=== PATIENT | female | born 1945 | race Caucasian/White ===

== ENCOUNTER → 2018-05-04 | Outpatient (CLI) | payer MEDICARE, OTHER ==
[~2018-05-04] MED LIST: ADVAIR 250-501 EACH INH; ADVAIR HFA 230M12 GM INH; ADVAIR INH; AVAPRO 150 MG150 M1 PO; BENTYL 10 MG CA10 M1 PO; BENTYL10 MG PO; CARDIZEM CD120 MG PO; CLONAZEPAM 1 MG1 M1 PO; HYDRALAZINE 2525 MG PO; HYDROXYZINE HCL25 M1; HYDROXYZINE HCL25 M2 PO; IRBESARTAN150 MG PO; LEVOTHYROXIN0.025 MG PO; LEVOTHYROXINE0.05 MG PO; LIPITOR 20 MG T20 M1 PO; NEXIUM40 MG PO; OLANZAPINE15 MG; OLANZAPINE5 MG PO; PROAIR HFA8.5 GM INH; SORINE 80 MG TA80 M1 PO; SOTALOL 120 MG120 M1 PO; SOTALOL AF120 MG PO; TYLENOL325 MG PO; VENTOLIN HFA 1818 GM INH; ZOLOFT25 MG PO
== END ==
LOC: M.ULTRA 13:41
DX: I65.23 Occlusion and stenosis of bilateral carotid arteries (principal)

== ENCOUNTER 2020-03-28 10:59 | Inpatient (IN) | payer MEDICARE, OTHER ==
[~2020-03-28] VITALS: Ht 160 cm; Wt 89.4 kg
[~2020-03-28 10:59] MED LIST changes: -LEVOTHYROXINE0.05 MG PO; +SYNTHROID50 MCG PO
[2020-03-28 11:04] VITALS: BP 173/84
[2020-03-28 11:55] LABS: BE 0.4 mmol/L (-2 to +3); PCO2 36.1 mmHg (35.0-45.0); PO2 66.7 mmHg (75.0-100.0)
[2020-03-28 12:08] LABS: ABSOLUTE MONOCYTES 0.9 thou/uL (0.0-1.2); ABSOLUTE NEUTROPHILS 4.5 thou/uL (1.6-8.1); BASOPHILS 0.2 %; HEMATOCRIT 38.5 % (37.0-47.0); HEMOGLOBIN 13.2 gm/dL (12.0-15.0); LYMPHOCYTES 15.2 %; MCH 32.5 pg (26.0-34.0); MCHC 34.2 g/dL (28.0-37.0); MONOCYTES 13.8 %; MPV 8.8 fl. (7.2-11.1); NUCLEATED RBCS 0 /100WBC; PLATELET COUNT* 206 thou/uL (150-400); POLYS 70.8 %; RBC 4.05 mil/uL (4.20-5.00); RDW-CV 12.5 % (10.5-14.5); WBC 6.4 thou/uL (4.0-11.0)
[2020-03-28 12:19] LABS: CALCIUM 8.7 mg/dL (8.5-10.1); CREATININE 0.8 mg/dL (0.6-1.3); POTASSIUM 3.7 mmol/L (3.5-5.1)
[2020-03-28 12:21] LABS: APTT 25.4 Seconds (25.0-31.3); PROTIME 9.9 Seconds (9.20-11.50)
[2020-03-28 12:29] LABS: TOTAL BILIRUBIN 0.3 mg/dL (<0.1-1.0); TOTAL PROTEIN 7.1 g/dL (6.4-8.2)
[2020-03-28 12:42] LABS: INR < 0.9
--- NOTE | 2020-03-28 15:33 | NUR ---
AZITHROMYCIN VIA IV INITIATED AT 1502HRS. PT MONITORED WITH NURSE IN ROOM. AT APRX 1515, PT C/O INCREASED SOA, ANTIBIOTICS STOPPED. ADMINISTERED 25MG BENADRYL AT 1522. NO SWELLING OF LIPS, THROAT OR TONGUE. PT STATES SHE WAS FEELING BETTER WHEN THE ANTIBIOTIC WAS STOPPED. PROVIDER NOTIFIED. WILL CONTINUE TO MONITOR
[2020-03-28 17:15] VITALS: BP 123/58
[2020-03-28 17:32] VITALS: BP 156/91
--- NOTE | 2020-03-28 18:57 | NUR ---
PT ADMITTED TO ROOM 108 VIA CART FROM ED AT APPROX 1725. REPORT RECEIVED FROM ROBB DOZIER. PT ORIENTED TO ROOM AND CALL LIGHT. ADMISSION ASSESSMENT AND HISTORY COMPLETED CHARTED. SEPSIS SCREENING NEGATIVE. PT A&0X4, DENIES ANY PAIN OR SHORTNESS OF BREATH AT REST. PT COMPLAINS OF SHORTNESS OF BREATH WITH EXERTION. PT ON 2L NC SAT MID 90'S. PT UP SBA TO BATHROOM. IVF. PT TRACING SR ON THE ROLLED SEAT TRIMMER. MEDS PER JUN. PT REPOSITIONS SELF. HOURLY ROUNDING OBSERVED. BED IN LOW POSITION. CALL LIGHT WITHIN REACH. WILL CONTINUE PLAN OF CARE.
[2020-03-28 20:00] VITALS: BP 126/68
[2020-03-29 00:26] VITALS: BP 101/47
[2020-03-29 04:00] VITALS: BP 127/61
--- NOTE | 2020-03-29 04:53 | NUR ---
PATIENT SLEPT WELL DURING THIS SHIFT. PT DENIES PAIN/NAUSEA. PT WITH ONE BAG OF FLUIDS INFUSING PER DR ORDER THEN SALINE LOCKED. PT IN SR ON PROFESSOR CRIMINAL JUSTICE. PT ON O2 @ 2 LITERS PER NASAL CANNULA. PT UP WITH STANDBY. PT DENIES NEEDS AT THIS TIME. FREQUENTLY USED ITEMS AND CALL LIGHT WITHIN REACH. SIDERAILS UPX2. WILL CONTINUE TO MONITOR.
[2020-03-29 06:07] LABS: HEMOGLOBIN 12.4 gm/dL (12.0-15.0); MCH 31.8 pg (26.0-34.0); MCHC 33.5 g/dL (28.0-37.0); MCV 94.9 fL (80.0-100.0); RBC 3.9 mil/uL (4.20-5.00); RDW-CV 12.4 % (10.5-14.5); WBC 5.1 thou/uL (4.0-11.0)
[2020-03-29 06:20] LABS: ALBUMIN 2.6 g/dL (3.4-5.0); CALCIUM 8.2 mg/dL (8.5-10.1); CREATININE 0.7 mg/dL (0.6-1.3); POTASSIUM 3.6 mmol/L (3.5-5.1); TOTAL BILIRUBIN 0.2 mg/dL (<0.1-1.0); TOTAL PROTEIN 6.6 g/dL (6.4-8.2)
--- NOTE | 2020-03-29 08:09 | NUR ---
CONTINUOUS O2 SAT MONITOR ALARMING, SAT 81% WITH PT ON RA. PT STATES SHE HAD REMOVED HOME CPAP BUT HAS BEEN WEARING O2 DURING DAY. PT TITRATED TO 3L O2 PER NC TO OBTAIN SAT >90%. TRANSFERRED TO CHAIR WITH MODERATE ASSIST X1. DESAT TO 75% DURING TRANSFER WITH REBOUND TO 90% OVER 2-3 MINUTES ON 3L. CALL LIGHT WITHIN REACH.
[2020-03-29 09:18] VITALS: BP 165/73
[2020-03-29] MEDS ORDERED: LOVASTAT10 PO (11:17)
[2020-03-29] MEDS ORDERED: VENLAFAXINE HC150 M1 PO (11:20)
[2020-03-29] MEDS ORDERED: SPIRONOLACTONE25 MG PO (11:21)
[2020-03-29] MEDS ORDERED: WIXELA 250-501 EACH INH (11:22)
[2020-03-29 12:00] VITALS: BP 136/58
--- NOTE | 2020-03-29 12:01 | EKG ---
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: MS : 1945 Requested By: Anibal Jordan Order Number: [id number] MD: Colin Myles Measurements Intervals [place] Rate: 151 P: 40 [place]: 99 QRS: -5 QRSD: 74 T: 178 QT: 258 QTc: 409 Interpretive Statements atrial fibrillation Repolarization abnormality, prob rate related Compared to ECG 10/24/2013 23:53:42 Early repolarization now present Sinus bradycardia no longer present Electronically Signed On 03-29-2020 12:01:12 ATHLETIC AGENT by Colin Myles [email or web address] <ELECTRONICALLY SIGNED> By: Colin Myles MD, FACC 03/29/20 1201 1649 1649 Colin Myles MD, FAC /EPI
[2020-03-29 16:00] VITALS: BP 140/72
[2020-03-29 20:00] VITALS: BP 156/76
[2020-03-30] VITALS (7 sets, daily range): BP systolic 138–153; BP diastolic 55–79
[2020-03-30 05:17] LABS: HEMOGLOBIN 12.1 gm/dL (12.0-15.0); MCH 32.4 pg (26.0-34.0); MCHC 34.5 g/dL (28.0-37.0); MCV 93.7 fL (80.0-100.0); MPV 8.2 fl. (7.2-11.1); RBC 3.73 mil/uL (4.20-5.00); RDW-CV 12.6 % (10.5-14.5); WBC 10.7 thou/uL (4.0-11.0)
[2020-03-30 05:32] LABS: ALBUMIN 2.4 g/dL (3.4-5.0); CALCIUM 8.6 mg/dL (8.5-10.1); CREATININE 0.7 mg/dL (0.6-1.3); MAGNESIUM 2.1 mg/dL (1.8-2.4); POTASSIUM 3.6 mmol/L (3.5-5.1); TOTAL BILIRUBIN 0.2 mg/dL (<0.1-1.0); TOTAL PROTEIN 6.1 g/dL (6.4-8.2)
--- NOTE | 2020-03-30 11:47 | EKG ---
[place] [address] ELECTROCARDIOGRAM REPORT Name: LAZIRISH Room: [address] ADM IN M.R.#: [id number] Admission: 03/28/20 Attend Phys: Wilmer Martin, Discharge: Date of : 41 Date of Service: 03/28/20 1136 Report #: [id number] THIS REPORT FOR: //name// [facility] ED Test Date: 2020-03-28 Test Time: 11:36:23 Pat Name: IRISH NESBITT Department: Room: [address] Gender: F Choir Director: NOLA : 1945 Requested By: Anibal Jordan Order Number: [id number] Reading MD: Colin Myles Measurements Intervals [place] Rate: 91 P: 40 [place]: 143 QRS: -14 QRSD: 84 T: 46 QT: 381 QTc: 469 Interpretive Statements Sinus rhythm Probable left atrial enlargement Minimal ST depression, lateral leads Compared to ECG 10/24/2013 23:53:42 ST (T wave) deviation now present Sinus bradycardia no longer present Electronically Signed On 03-30-2020 11:47:22 EXTRUSION DIE TEMPLATE MAKER by Colin Myles [email or web address] <ELECTRONICALLY SIGNED> By: Colin Myles MD, FACC 03/30/20 1147 1136 1136 Colin Myles MD, FACC /EPI
--- NOTE | 2020-03-30 17:22 | NUR ---
PT SITTING IN BED AT TIME OF ASSESSMENT, AO X4 2L OXYGEN. LUNGS CTA/DIMINISHED AND REPORTS A COUGH WITH YELLOW PRODUCTION AT TIMES. SHE RECEIVED 1 UNIT OF CONVALESCENT PLASMA WITHOUT PROBLEM. VSS, PT WAS INITIALLY ON 2L PER NC AND AN OXIMETRY WITHOUT SUPPLEMENTAL OXYGEN WAS ORDERED TO WHICH THE PT WAS SATING 92-93% ON RA. SHE DID NOTICE DYSPNEA WITH EXERTION AND AFTER APPROX 2 HRS WE PUT 2L BACK ON FOR HER COMFORT. SHE HAS RESTED IN THE CHAIR AND IN BED TODAY AND ASKED MANY APPROPRIATE QUESTIONS REGARDING HER CARE.
[2020-03-31] VITALS: BP 134/65
[2020-03-31 04:00] VITALS: BP 131/65
[2020-03-31 05:20] LABS: ABSOLUTE LYMPHOCYTES 0.9 thou/uL (0.8-5.3); ABSOLUTE NEUTROPHILS 10.3 thou/uL (1.6-8.1); BASOPHILS 0.1 %; HEMATOCRIT 35.7 % (37.0-47.0); LYMPHOCYTES 7.2 %; MCH 31.6 pg (26.0-34.0); MCHC 33.7 g/dL (28.0-37.0); MCV 93.9 fL (80.0-100.0); MONOCYTES 8.2 %; MPV 8.4 fl. (7.2-11.1); NUCLEATED RBCS 0 /100WBC; PLATELET COUNT* 247 thou/uL (150-400); POLYS 84.5 %; RDW-CV 12.5 % (10.5-14.5); WBC 12.2 thou/uL (4.0-11.0)
[2020-03-31 05:35] LABS: ALBUMIN 2.4 g/dL (3.4-5.0); CALCIUM 8.5 mg/dL (8.5-10.1); CREATININE 0.7 mg/dL (0.6-1.3); MAGNESIUM 2.2 mg/dL (1.8-2.4); POTASSIUM 3.6 mmol/L (3.5-5.1); TOTAL BILIRUBIN 0.3 mg/dL (<0.1-1.0)
[2020-03-31 08:00] VITALS: BP 169/84
[2020-03-31 12:00] VITALS: BP 129/54
--- NOTE | 2020-03-31 13:00 | NUR ---
SPOKE WITH PT.ON PHONE IN ROOM, SHE WAS IN COVID ISOLATION.SHE WAS ALERT ADN ORIENTED. SHE SAID SHE LIVES WITH HER . HE AND SON,JUD ARE SUPPORTIVE. PT.OCCASIONALLY USES A CANE TO WALK,WHEN SHE FEELS UNSTEADY. SHE IS NORMALLY INDEPENDENT. DOING WELL TODAY. ON 2L/NC O2 AND WALKED 100FT. POSSIBLE DISCHARGE TOMORROW.
[2020-03-31 16:00] VITALS: BP 158/81
[2020-03-31 20:44] VITALS: BP 152/74
[2020-04-01 00:08] VITALS: BP 134/72
--- NOTE | 2020-04-01 05:18 | NUR ---
PT IS ABLE TO COMMUNICATE HER NEEDS TO STAFF EFFECTIVELY. SHE HAS DENIED THE NEED FOR PAIN MEDICATION UP TO THIS TIME. POSSIBLE DISCHARGE TODAY. PT REMAINS AD WESTLEY AND ON ROOM AIR.
[2020-04-01 05:36] LABS: ABSOLUTE LYMPHOCYTES 0.8 thou/uL (0.8-5.3); ABSOLUTE NEUTROPHILS 9.5 thou/uL (1.6-8.1); BASOPHILS 0.3 %; HEMATOCRIT 36.8 % (37.0-47.0); HEMOGLOBIN 12.6 gm/dL (12.0-15.0); LYMPHOCYTES 7.2 %; MCH 31.8 pg (26.0-34.0); MCHC 34.2 g/dL (28.0-37.0); MONOCYTES 8.4 %; MPV 8.3 fl. (7.2-11.1); NUCLEATED RBCS 0 /100WBC; PLATELET COUNT* 253 thou/uL (150-400); POLYS 84.1 %; RBC 3.96 mil/uL (4.20-5.00); RDW-CV 12.4 % (10.5-14.5); WBC 11.4 thou/uL (4.0-11.0)
[2020-04-01 05:54] LABS: ALBUMIN 2.2 g/dL (3.4-5.0); CALCIUM 8.7 mg/dL (8.5-10.1); CREATININE 0.7 mg/dL (0.6-1.3); POTASSIUM 3.9 mmol/L (3.5-5.1); TOTAL BILIRUBIN 0.3 mg/dL (<0.1-1.0)
[2020-04-01 08:00] VITALS: BP 180/85
[2020-04-01] MEDS ORDERED: DOXYCYCLINE 10100 MG PO (11:52)
[2020-04-01] MEDS ORDERED: PROTONIX40 M2 PO (11:54)
[2020-04-01] MEDS ORDERED: DEXAMETHASONE1 MG PO (11:54)
[2020-04-01 12:48] VITALS: BP 141/65
[2020-04-01 17:59] VITALS: BP 152/73
--- NOTE | 2020-04-01 19:15 | NUR ---
PT.S DISCHARGE CANCELLED TODAY BY , DUE TO RESTING/EXERCISE SATS COMPLETED AND NEEDING 6L/NC OF 02 WITH ACITVITY.
[2020-04-01 20:29] VITALS: BP 151/83
[2020-04-02 00:02] VITALS: BP 130/54
--- NOTE | 2020-04-02 05:15 | NUR ---
PT IS ABLE TO COMMUNICATE HER NEEDS TO STAFF EFFECTIVELY. SHE HAS DENIED THE NEED FOR PAIN MEDICATION UP TO THIS TIME. SHE HAS BEEN WEARING 2L O2 WHILE SLEEPING OVERNIGHT AND UP TO THIS TIME. POSSIBLE DISCHARGE TODAY; SHE MAY REQUIRE O2 AT HOME.
[2020-04-02 08:15] VITALS: BP 172/87
[2020-04-02 08:41] LABS: ABSOLUTE LYMPHOCYTES 1.1 thou/uL (0.8-5.3); ABSOLUTE MONOCYTES 0.8 thou/uL (0.0-1.2); BASOPHILS 0.1 %; EOSINOPHILS 0.1 %; HEMATOCRIT 39.7 % (37.0-47.0); HEMOGLOBIN 12.9 gm/dL (12.0-15.0); LYMPHOCYTES 12.6 %; MCHC 32.5 g/dL (28.0-37.0); MONOCYTES 9.1 %; MPV 8.6 fl. (7.2-11.1); NUCLEATED RBCS 0 /100WBC; PLATELET COUNT* 247 thou/uL (150-400); POLYS 78.1 %; RBC 4.04 mil/uL (4.20-5.00); RDW-CV 12.7 % (10.5-14.5)
[2020-04-02 08:45] LABS: MCV 98.2 fL (80.0-100.0)
[2020-04-02 08:50] LABS: ALBUMIN 2.1 g/dL (3.4-5.0); CALCIUM 8.5 mg/dL (8.5-10.1); CREATININE 0.7 mg/dL (0.6-1.3); TOTAL BILIRUBIN 0.3 mg/dL (<0.1-1.0); TOTAL PROTEIN 5.7 g/dL (6.4-8.2)
[2020-04-02 12:07] VITALS: BP 162/73
[2020-04-02 16:00] VITALS: BP 157/71
[2020-04-02 16:50] VITALS: BP 150/96; BP 163/92
--- NOTE | 2020-04-02 18:22 | NUR ---
PT REMAINED ALERT AND ORIENTED. PLASMA GIVEN PER ORDERS. PT RESTING IN BED AND UP MOVING IN ROOM. HEART MONITORED. FALL RISK PRECAUTIONS IN PLACE. HOURLY ROUNDING COMPLETED. WILL CONTINUE TO MONITOR.
[2020-04-02 20:39] VITALS: BP 121/76
[2020-04-03 07:45] VITALS: BP 167/74
--- NOTE | 2020-04-03 08:43 | NUR ---
PT IS ABLE TO COMMUNICATE HER NEEDS TO STAFF EFFECTIVELY. SHE HAS DENIED THE NEED FOR PAIN MEDICATION UP TO 0700 THIS MORNING. POSSIBLE DISCHARGE SOON.
--- NOTE | 2020-04-03 11:30 | NUR ---
DISCUSSED IN [place]. PT.MAY BE READY FOR DISCHARGE TOMORROW IF REST/EXERCISE SATS IMPROVE. HOWEVER, IV REMDESIVIR WAS STARTED TODAY. WILL FOLLOW.
[2020-04-03 11:45] VITALS: BP 163/74
[2020-04-03 13:35] LABS: HEMATOCRIT 37.8 % (37.0-47.0); HEMOGLOBIN 12.8 gm/dL (12.0-15.0); MCH 32.3 pg (26.0-34.0); MCHC 33.9 g/dL (28.0-37.0); NUCLEATED RBCS 0 /100WBC; PLATELET COUNT* 288 thou/uL (150-400); RBC 3.98 mil/uL (4.20-5.00); RDW-CV 12.2 % (10.5-14.5); WBC 9.2 thou/uL (4.0-11.0)
[2020-04-03 13:38] LABS: CALCIUM 8.4 mg/dL (8.5-10.1); CREATININE 0.7 mg/dL (0.6-1.3); MAGNESIUM 2.4 mg/dL (1.8-2.4); POTASSIUM 4.1 mmol/L (3.5-5.1)
[2020-04-03 13:59] LABS: ABSOLUTE LYMPHOCYTES 0.9 thou/uL (0.8-5.3); ABSOLUTE MONOCYTES 0.4 thou/uL (0.0-1.2); ABSOLUTE NEUTROPHILS 7.9 thou/uL (1.6-8.1); METAMYELOCYTES 2 %; PLATELET ESTIMATE ADEQUATE
--- NOTE | 2020-04-03 14:43 | CON ---
[address] [address] CONSULTATION Name: IRISH NESBITT Room: [address] IN .R.#: [id number] Admission: 03/28/20 Attend Phys: Wilmer Martin MD Discharge: Date of : 41 Report #: [id number] THIS REPORT FOR: //name// cc: Jaimie Flores Catherine FNP ~ DATE OF SERVICE: 03/30/2020 CONSULT REQUESTED BY: Сергей Laura MD INDICATION FOR CONSULTATION: COVID-19. HISTORY OF PRESENT ILLNESS: A 74-year-old female with past medical history as mentioned below. This does include a history of obstructive lung disease. It is not fully apparent as to whether this is asthma or COPD. It appears more likely to me that it is asthma. The patient also does have a history of atrial fibrillation. She is on sotalol, but not on long-term anticoagulation. Atrial fibrillation is reported to be paroxysmal. The patient does have a body mass index elevated to 35 and it is possible that she has underlying previously undiagnosed sleep apnea. The patient is now admitted with increasing weakness, cough with some sputum production. She also is reported to have had fever and chills. The patient has had mild hypoxemia at times and has required oxygen up to 3 liters to maintain O2 saturation in the low 90s. The patient was saturating 92% on room air at the time of my evaluation. She reports increasing coughing over the last one week. REVIEW OF SYSTEMS: Negative for 12 points except as mentioned above. PAST MEDICAL HISTORY: Bronchial asthma or COPD, obesity, body mass index 35, paroxysmal atrial fibrillation. I do not have a recent echo. There is a stress test performed on 5 years ago, which shows a normal left ventricular ejection fraction. Various surgeries including gallbladder surgery and tubal ligation, hernias, fibromyalgia, ankylosing spondylitis, irritable bowel syndrome, hysterectomy, osteoarthritis, gastroesophageal reflux disease, diverticulitis, hypothyroidism, sinus surgery, hypertension. SOCIAL HISTORY: Extensive history of smoking when she was younger, but discontinued in 1988. Has not smoked since then. No known history of heavy alcohol use or illegal drug use. CURRENT MEDICATIONS: List in [employer] reviewed. HOME MEDICATIONS: List in [employer] reviewed. Also, [place] [address] CONSULTATION Name: IRISH NESBITT Room: [address] IN [facility].#: [id number] Admission: 03/28/20 Attend Phys: Wilmer Martin MD Discharge: Date of : 41 Report #: [id number] FAMILY HISTORY: There is no pertinent family history. ALLERGIES: There is a long list of allergies in [employer]. I reviewed the entire list. It appears unlikely to me that the patient in fact is allergic to all of these medications. Also, note that the patient is reported to be allergic to PENICILLIN; however, she tolerates cephalosporin without any problems. It is also noted that she is tolerating doxycycline without problems. PHYSICAL EXAMINATION: GENERAL: She is alert, awake and oriented. VITAL SIGNS: In the records reviewed. Also discussed above. NECK: Does not show raised JVP. CHEST: Breath sounds bilaterally equal, decreased. No added sounds. HEART: Regular, no murmur. ABDOMEN: Soft and nontender. EXTREMITIES: Lower extremities, trace edema, no calf tenderness. LABORATORY DATA: The patient's chest x-rays and lab work is in [facility] and reviewed. ASSESSMENT AND PLAN: 1. Acute respiratory insufficiency secondary to COVID-19. Recommend watching O2 saturations closely and use oxygen as indicated. If she worsens, I will have a low threshold of placing her on a CPAP or BiPAP as she does likely have underlying obstructive sleep apnea. 2. COVID-19, I agree with Solu-Medrol as well as one unit of convalescent plasma already administered. I would in fact cut back on the dose of Solu-Medrol. Note that the patient is saturating 92% on room air. My understanding of the guidelines for use of remdesivir as that indicated if there is a risk of progression and O2 saturation is less than 94% on room air by itself is a reason to possibly consider remdesivir. I therefore recommend having a very low threshold of considering remdesivir should there be any progression in the patient's condition. 3. Pulmonary infiltrates. I also agree with covering for secondary bacterial infection with antibiotics. 4. Bronchial asthma. As above, it is not entirely clear as to whether the patient has asthma or COPD. For now, I will treat her as asthma. We will add Brovana. She is on steroid. 5. Paroxysmal atrial fibrillation. Note that she is on sotalol. She is not currently on full dose anticoagulation. 6. Mild fluid overload. Lasix one dose in a.m. 7. Evaluation for thromboembolic phenomena. We will do a D-dimer in a.m. If elevated, we will consider venous Dopplers. 8. Clostridium difficile prophylaxis. We will add Florastor. [address] [address] CONSULTATION Name: IRISH NESBITT Room: [address] IN ..#: [id number] Admission: 03/28/20 Attend Phys: Wilmer Martin MD Discharge: Date of : 41 Report #: [id number] Thanks for this consultation. <ELECTRONICALLY SIGNED> By: Emiliano Cohen MD 04/03/20 1443 [id number] Cohen MD /nt
[2020-04-03 16:03] VITALS: BP 135/56
[2020-04-03 20:10] VITALS: BP 151/69
[2020-04-04] VITALS: BP 169/84
[2020-04-04 04:00] VITALS: BP 176/80
[2020-04-04 05:09] LABS: ABSOLUTE MONOCYTES 0.7 thou/uL (0.0-1.2); ABSOLUTE NEUTROPHILS 7.7 thou/uL (1.6-8.1); BASOPHILS 0.1 %; HEMATOCRIT 38.3 % (37.0-47.0); HEMOGLOBIN 12.9 gm/dL (12.0-15.0); LYMPHOCYTES 10.4 %; MCH 31.6 pg (26.0-34.0); MCHC 33.7 g/dL (28.0-37.0); MCV 93.6 fL (80.0-100.0); MONOCYTES 7.8 %; MPV 8.3 fl. (7.2-11.1); NUCLEATED RBCS 0 /100WBC; PLATELET COUNT* 319 thou/uL (150-400); POLYS 81.7 %; RBC 4.09 mil/uL (4.20-5.00); WBC 9.5 thou/uL (4.0-11.0)
--- NOTE | 2020-04-04 05:26 | NUR ---
PT SLEPT MOST OF SHIFT. ASSESSMENT DOCUMENTED. MEDS GIVEN PER E-JUN. IV PATENT. NO REPORTS OF PAIN THIS SHIFT. PT ON 2L NC. ISOLATION MAINTAINED.
[2020-04-04 06:37] LABS: ALBUMIN 2.2 g/dL (3.4-5.0); CALCIUM 8.3 mg/dL (8.5-10.1); CREATININE 0.7 mg/dL (0.6-1.3); POTASSIUM 4.2 mmol/L (3.5-5.1); TOTAL BILIRUBIN 0.3 mg/dL (<0.1-1.0); TOTAL PROTEIN 5.7 g/dL (6.4-8.2)
[2020-04-04 07:45] VITALS: BP 145/89
[2020-04-04 11:25] VITALS: BP 128/50
--- NOTE | 2020-04-04 16:52 | NUR ---
PT A&OX4 VSS. PT MOVED TO ROOM AIR THIS SHIFT BY RT. NO C/O PAIN. IV TO L HAND PATENT, DRESSING C/D/I. PT UP AD WESTLEY TO RESTROOM. PT RESTS IN ROOM WITH CALL LIGHTIN REACH, WILL CONTINUE TO MONITOR. PT ASKS ABOUT GOING HOME. PHYSICIAN AND CM AWARE THAT PT INTERESTED IN GOING HOME.
[2020-04-04 18:27] VITALS: BP 147/83
[2020-04-04 20:00] VITALS: BP 154/70
[2020-04-05] VITALS (7 sets, daily range): BP systolic 104–163; BP diastolic 41–84
--- NOTE | 2020-04-05 07:02 | NUR ---
PT SLEPT WELL OVERNIGHT. ROOM AIR SAT 93%. DENIES PAIN OR PROBLEMS. AM LAB. HOLLIS SL. MEDS GIVEN ORDERED. PT UP AD WESTLEY IN ROOM TO BR TO VOID. AOX4, ABLE TO USE CALL LITE AND MAKE NEEDS KNOWN. TELE SR. HOPEFUL FOR DISCHARGE HOME SOON.
--- NOTE | 2020-04-05 19:10 | NUR ---
PT A&OX4 VSS. PT SINUS ON MONITOR. DENIES PAIN. RT EVALUATED AND PT WILL BE DC'D TO HOME WITH O2. IV TO LFA PATENT, DRESSING C/D/I. IV DC'D PRIOR TO PT LEAVING UNIT. PT REMAINS CONTINENT OF B/B. HOME HEALTH ARRANGEMENTS MADE BY PHONE AND INFORMATION PACKET FAXED TO [facility]. HOUSE SUPERVISER CONSULTED WELL ON-CALL CM. PT O2 DELIVERED TO UNIT BY [facility], ORDER READS NO O2 AT REST AND 2L WHEN ACTIVE. [facility] OF LOC[facility]IN [facility] CONFIRMED PT AND STATES THEY WILL CONTACT THIS PT TOMORROW TO SCHEDULE. PT STATES UNDERSTANDING OF DC INSTRUCITONS AND RX PROVIDED. PT EDUCATED REGARDING ISOLATION PRECAUTIONS. PT DRESSED INDEPENDENTLY AND WAITING FOR SON TO DISTRIBUTION WAREHOUSE MANAGER.
[2020-04-06 04:00] VITALS: BP 153/78
== END 2020-04-05 19:30 | disposition home health service (06) | DRG 177 ==
LOC: M.ERS 10:59 → M.TBA-ER 13:00 → M.ORTHSURG 13:00 → M.TBA-ER 16:51 → M.ORTHSURG 17:25
PROVIDERS: Family Medicine; Internal Medicine; Internal Medicine Critical Care Medicine; ADMIT Internal Medicine; ATTEND Internal Medicine
PROC: XW13325 Transfusion of Convalescent Plasma (Nonautologous) into Peripheral Vein, Percutaneous Approach, New Technology Group 5 (ICD-10-PCS; principal; 2020-03-30)
PROC: XW033E5 Introduction of Remdesivir Anti-infective into Peripheral Vein, Percutaneous Approach, New Technology Group 5 (ICD-10-PCS; 2020-04-02)
DX: U07.1 COVID-19 (principal); J96.01 Acute respiratory failure with hypoxia; J12.89 Other viral pneumonia; J44.0 Chronic obstructive pulmonary disease with (acute) lower respiratory infection; M79.7 Fibromyalgia; K58.9 Irritable bowel syndrome, unspecified; K21.9 Gastro-esophageal reflux disease without esophagitis; E03.9 Hypothyroidism, unspecified; E87.70 Fluid overload, unspecified; I48.0 Paroxysmal atrial fibrillation; R53.81 Other malaise; E66.9 Obesity, unspecified; I10 Essential (primary) hypertension; Z90.49 Acquired absence of other specified parts of digestive tract; Z79.899 Other long term (current) drug therapy; Z88.1 Allergy status to other antibiotic agents; Z88.5 Allergy status to narcotic agent; Z88.0 Allergy status to penicillin; Z88.2 Allergy status to sulfonamides; Z88.8 Allergy status to other drugs, medicaments and biological substances; Z91.09 Other allergy status, other than to drugs and biological substances; Z87.891 Personal history of nicotine dependence; Z68.34 Body mass index [BMI] 34.0-34.9, adult